=== PATIENT | male | born 2000 | race Caucasian/White ===

== ENCOUNTER 2020-07-04 22:05 | Emergency (ER) | payer OTHER ==
[~2020-07-04] VITALS: Ht 180.3 cm; Wt 76.7 kg
[2020-07-04 22:27] VITALS: Ht 180.3 cm; Wt 76.7 kg
[2020-07-04 22:44] VITALS: BP 129/67
[2020-07-04] MEDS ORDERED: PENICILLIN V P500 MG PO (22:47)
[2020-07-04] MEDS ORDERED: ULTRAM50 MG PO (22:47)
== END 2020-07-04 22:52 | disposition home or self-care (01) ==
LOC: ED 22:05
DX: I89.1 Lymphangitis (principal)